=== PATIENT | male | born 1955 | race Caucasian/White ===

== ENCOUNTER 2022-07-08 04:00 | Day surgery (SDC) | payer OTHER ==
[2022-07-02 15:05] VITALS: BMI 28.6
[2022-07-08] MEDS ORDERED: MIDAZOLAM HCL 2 MG/2 ML SINGLE DOSE VIAL ONE (07:25)
[2022-07-08] MEDS ORDERED: SUCCINYLCHOLINE CHLORIDE 200 MG/10 ML SYRINGE ONE (07:25)
[2022-07-08] MEDS ORDERED: PROPOFOL 40 ML ONE (07:25)
[2022-07-08] MEDS ORDERED: ROPIVACAINE HCL 0.5% 30ML VIAL ONE (07:30)
[2022-07-08] MEDS ORDERED: DEXAMETHASONE SOD PHOSPHATE 10 MG/1 ML VIAL ONE (07:30)
[2022-07-08] MEDS ORDERED: ceFAZolin SODIUM 1 GM VIAL ONE (07:43)
[2022-07-08] MEDS ORDERED: DEXAMETHASONE SOD PHOSPHATE 4 MG/1 ML VIAL ONE (07:43)
[2022-07-08] MEDS ORDERED: GLYCOPYRROLATE 0.2 MG/1 ML VIAL ONE (07:43)
[2022-07-08] MEDS ORDERED: ONDANSETRON 4 MG/2 ML VIAL ONE (07:43)
[2022-07-08] MEDS ORDERED: ceFAZolin SODIUM 1 GM VIAL IVPB ONE (08:40)
[2022-07-08] MEDS ORDERED: PROPOFOL 20 ML ONE ×2 (09:45)
[2022-07-08] MEDS ORDERED: ONDANSETRON 4 MG/2 ML VIAL IVPUSH PRN (10:16)
[2022-07-08] MEDS ORDERED: oxyCODONE HCL 5 MG TABLET PO PRN (10:16)
[2022-07-08 14:26] VITALS: RESP 20; TEMP 97.2
[2022-07-08 14:33] VITALS: BP 132/82; PULSE 58
== END 2022-07-08 12:30 | disposition home or self-care (01) ==
LOC: JASU-SURG 04:00
PROVIDERS: ATTEND Orthopaedic Surgery
PROC: 0LQ24ZZ Repair Left Shoulder Tendon, Percutaneous Endoscopic Approach (ICD-10-PCS; 2022-07-08)
PROC: 0PBB4ZZ Excision of Left Clavicle, Percutaneous Endoscopic Approach (ICD-10-PCS; 2022-07-08)
PROC: 0LS44ZZ Reposition Left Upper Arm Tendon, Percutaneous Endoscopic Approach (ICD-10-PCS; 2022-07-08)
PROC: 0RNK4ZZ Release Left Shoulder Joint, Percutaneous Endoscopic Approach (ICD-10-PCS; principal; 2022-07-08 08:00)
PROC: 0LS44ZZ Reposition Left Upper Arm Tendon, Percutaneous Endoscopic Approach (ICD-10-PCS; 2022-07-08 08:00)
DX: M75.42 Impingement syndrome of left shoulder (principal); M75.102 Unspecified rotator cuff tear or rupture of left shoulder, not specified as traumatic; S43.492A Other sprain of left shoulder joint, initial encounter; X58.XXXA Exposure to other specified factors, initial encounter; Y93.9 Activity, unspecified; Y92.9 Unspecified place or not applicable; M19.012 Primary osteoarthritis, left shoulder
CPT/HCPCS: 29824; 29826; 29827; C1713; C9781; 94010; 94760; J1100

== ENCOUNTER 2024-07-12 04:13 | Inpatient (IN) | payer OTHER ==
[2024-07-12] MEDS ORDERED: PROPOFOL 40 ML ONE ×3 (07:37→16:19)
[2024-07-12] MEDS ORDERED: MIDAZOLAM HCL 2 MG/2 ML SINGLE DOSE VIAL ONE (07:38)
[2024-07-12] MEDS ORDERED: SUCCINYLCHOLINE CHLORIDE 200 MG/10 ML SYRINGE ONE (07:40)
[2024-07-12] MEDS ORDERED: ROCURONIUM BROMIDE 50 MG/5 ML SYRINGE ONE (07:40)
[2024-07-12] MEDS ORDERED: ceFAZolin SODIUM 1 GM VIAL ONE ×2 (07:48→11:43)
[2024-07-12] MEDS ORDERED: THROMBIN (BOVINE) 5,000 UNIT VIAL TP ONE (11:06)
[2024-07-12] MEDS ORDERED: DEXAMETHASONE SOD PHOSPHATE 4 MG/1 ML VIAL ONE ×2 (11:43→11:45)
[2024-07-12] MEDS: ceFAZolin SODIUM 1 GM VIAL IVPB ONE ×5 (11:47→16:00)
[2024-07-12] MEDS ORDERED: HYDROmorphone HCl 2 MG/ML VIAL ONE (11:52)
[2024-07-12] MEDS ORDERED: ACETAMINOPHEN INJECTION 100 ML ONE (12:24)
[2024-07-12] MEDS ORDERED: PROPOFOL 60 ML ONE (12:36)
[2024-07-12] MEDS ORDERED: PROPOFOL 80 ML ONE (13:39)
[2024-07-12] MEDS ORDERED: PROPOFOL 100 ML ONE (14:28)
[2024-07-12] MEDS ORDERED: ONDANSETRON 4 MG/2 ML VIAL IVPUSH PRN ×2 (14:31→20:03)
[2024-07-12] MEDS ORDERED: PROPOFOL 20 ML ONE ×3 (16:58→17:25)
[2024-07-12 19:20] LABS: ARTERIAL BLD GAS O2 SATURATION 99.5 % (95-98); ARTERIAL BLOOD GAS PO2 273.4 mmHg (80-100); ARTERIAL BLOOD GAS pH 7.206 (7.350-7.450)
[2024-07-12] MEDS ORDERED: HYDROmorphone *PCA* 10MG/50ML DISP.SYRIN ONE (19:34)
[2024-07-12 19:44] LABS: HEMATOCRIT 44.7 % (35.4-49); HEMOGLOBIN 14.8 GM/dL (11.7-16.9); MCH 28.7 pg (25.7-33.7); MCHC 33.1 g/dl (32.0-35.9); MEAN CELL VOLUME 86.6 fl (80-96); MEAN PLT VOLUME 7.4 fl (7.5-11.1); PLATELET COUNT 336 10^3/uL (134-434); RBC 5.16 M/mm3 (4.00-5.60); RDW 13.3 % (11.9-15.9); WHITE BLOOD COUNT 17.1 K/mm3 (4.0-10.0)
[2024-07-12 20:26] LABS: POTASSIUM 4.5 mmol/L (3.5-5.1)
[2024-07-12 20:27] LABS: CALCIUM 8.5 mg/dL (8.5-10.1)
[2024-07-12 20:28] LABS: BLOOD UREA NITROGEN 14.6 mg/dL (7-18)
[2024-07-12 20:31] LABS: CREATININE 1.3 mg/dL (0.55-1.3)
[2024-07-12] MEDS: HYDROmorphone *PCA* 10MG/50ML DISP.SYRIN PCA SCH ×2 (20:51→23:12)
[2024-07-12] MEDS: LACTATED RINGERS SOLUTION 1,000 ML IV SCH ×2 (20:52→23:12)
[2024-07-13 00:28] VITALS: BMI 28.5
[2024-07-13 07:37] LABS: HEMOGLOBIN 14.2 GM/dL (11.7-16.9); MCH 28.7 pg (25.7-33.7); MEAN CELL VOLUME 86.9 fl (80-96); MEAN PLT VOLUME 7.8 fl (7.5-11.1); PLATELET COUNT 321 10^3/uL (134-434); RBC 4.95 M/mm3 (4.00-5.60); RDW 13.5 % (11.9-15.9); WHITE BLOOD COUNT 17.2 K/mm3 (4.0-10.0)
[2024-07-13 07:53] LABS: POTASSIUM 4.4 mmol/L (3.5-5.1)
[2024-07-13 07:54] LABS: ALBUMIN 3.2 g/dl (3.4-5.0); CALCIUM 8.9 mg/dL (8.5-10.1)
[2024-07-13 07:57] LABS: CREATININE 0.9 mg/dL (0.55-1.3)
[2024-07-13 07:58] LABS: MAGNESIUM 2.4 mg/dL (1.8-2.4); PHOSPHOROUS 3.8 mg/dL (2.5-4.9)
[2024-07-13 08:00] LABS: BILIRUBIN,TOTAL 0.6 mg/dL (0.2-1); TOT PROT 5.7 g/dl (6.4-8.2)
[2024-07-13 08:48] LABS: ARTERIAL BLD GAS O2 SATURATION 93.6 % (95-98); ARTERIAL BLOOD GAS BASE EXCESS -1.2 mmol/L (-2-2); ARTERIAL BLOOD GAS pH 7.355 (7.350-7.450)
[2024-07-13 08:51] LABS: ALLENS TEST POSITIVE
[2024-07-13] MEDS: amLODIPine BESYLATE 10 MG TABLET (FP) PO SCH (11:03)
[2024-07-13] MEDS: ROSUVASTATIN CA 5 MG TABLET PO SCH (22:07)
[2024-07-14 09:29] LABS: BASO % 0.1 % (0-2.0); EOS % 0.1 % (0-4.5); HEMOGLOBIN 14.6 GM/dL (11.7-16.9); LYMPH % 8.6 % (8-40); MCH 28.6 pg (25.7-33.7); MCHC 33.2 g/dl (32.0-35.9); MEAN CELL VOLUME 86.2 fl (80-96); MEAN PLT VOLUME 7.7 fl (7.5-11.1); MONO % 12.7 % (3.8-10.2); NEUT % 78.5 % (42.8-82.8); PLATELET COUNT 324 10^3/uL (134-434); RBC 5.11 M/mm3 (4.00-5.60); RDW 13.4 % (11.9-15.9); WHITE BLOOD COUNT 16.1 K/mm3 (4.0-10.0)
[2024-07-14 09:57] LABS: POTASSIUM 4.1 mmol/L (3.5-5.1)
[2024-07-14] MEDS: DOCUSATE SODIUM 100 MG CAPSULE (FP) PO SCH (10:02)
[2024-07-14 10:06] LABS: CALCIUM 9.2 mg/dL (8.5-10.1)
[2024-07-14 10:07] LABS: ALBUMIN 3.2 g/dl (3.4-5.0)
[2024-07-14 10:11] LABS: TOT PROT 6.2 g/dl (6.4-8.2)
[2024-07-14] MEDS: oxyCODONE HCL 5 MG TABLET PO PRN (18:33)
[2024-07-15 06:39] LABS: BASO % 0.3 % (0-2.0); EOS % 0.7 % (0-4.5); HEMATOCRIT 40.4 % (35.4-49); HEMOGLOBIN 13.3 GM/dL (11.7-16.9); LYMPH % 14.2 % (8-40); MCH 28.8 pg (25.7-33.7); MCHC 32.9 g/dl (32.0-35.9); MEAN CELL VOLUME 87.6 fl (80-96); MONO % 12.6 % (3.8-10.2); NEUT % 72.2 % (42.8-82.8); PLATELET COUNT 275 10^3/uL (134-434); RBC 4.61 M/mm3 (4.00-5.60); RDW 13.3 % (11.9-15.9); WHITE BLOOD COUNT 14.6 K/mm3 (4.0-10.0)
[2024-07-15] MEDS: ACETAMINOPHEN 325 MG TABLET (FP) PO PRN (16:54)
[2024-07-15] MEDS: LIDOCAINE 5% TOPICAL PATCH TP ONE (21:49)
[2024-07-15] MEDS: MELATONIN 5 MG TABLETS PO ONE (21:50)
[2024-07-16] MEDS: amLODIPine BESYLATE 5 MG TABLET (FP) PO SCH (09:11)
[2024-07-16] MEDS: LIDOCAINE PATCH REMOVAL MC SCH (09:34)
[2024-07-16 10:05] LABS: BASO % 0.1 % (0-2.0); HEMATOCRIT 40.3 % (35.4-49); HEMOGLOBIN 13.6 GM/dL (11.7-16.9); LYMPH % 5.2 % (8-40); MCHC 33.9 g/dl (32.0-35.9); MEAN CELL VOLUME 85.5 fl (80-96); MONO % 5.8 % (3.8-10.2); NEUT % 88.9 % (42.8-82.8); PLATELET COUNT 308 10^3/uL (134-434); RBC 4.71 M/mm3 (4.00-5.60); RDW 13.2 % (11.9-15.9); WHITE BLOOD COUNT 14.7 K/mm3 (4.0-10.0)
[2024-07-16] MEDS: busPIRone HCL 5 MG TABLET PO SCH (11:28)
[2024-07-16] MEDS: ENOXAPARIN NA (PORCINE) 40 MG/0.4 ML DISP.SYRIN SQ SCH (11:29)
[2024-07-16] MEDS ORDERED: PIPERACILLIN/TAZOB 3.375 GM 3.375 GM in DEXTROSE 5%-WATER - 50 ML IVPB SCH (12:15)
[2024-07-16] MEDS: ENOXAPARIN NA (PORCINE) 40 MG/0.4 ML DISP.SYRIN SQ ONE (13:34)
[2024-07-16 16:53] LABS: EPI CELLS 8 /uL (0-25.1); HYALINE CASTS 0 /uL (0-3.1); PH,URINE 6.5 (5.0-8.0); URINE APPEARANCE CLEAR; URINE BACTERIA 5 /uL (0-1359); URINE BILIRUBIN NEGATIVE (NEGATIVE); URINE COLOR YELLOW; URINE GLUCOSE (UA) NEGATIVE (NEGATIVE); URINE KETONE TRACE (NEGATIVE); URINE LEUK ESTERASE NEGATIVE (NEGATIVE); URINE NITRITE NEGATIVE (NEGATIVE); URINE PROTEIN 1+ (NEGATIVE); URINE RBC 1746 /uL (0-23.9); URINE WBC 20 /uL (0-25.8)
[2024-07-16] MEDS: PIPERACILLIN/TAZOB 3.375 GM 50 ML IVPB SCH (17:29)
[2024-07-16] MEDS: ENOXAPARIN NA (PORCINE) 80 MG/0.8 ML DISP.SYRIN SQ SCH (21:00)
[2024-07-17] MEDS: VANCOMYCIN/WATER FOR INJ (PEG) 1,000 MG/200 ML BAG IVPB ONE (00:43)
[2024-07-17] MEDS: PIPERACILLIN/TAZOB 4.5 GM 4.5 GM/100 ML BAG IVPB SCH (03:30)
[2024-07-17 11:27] LABS: POTASSIUM 3.5 mmol/L (3.5-5.1)
[2024-07-17 11:31] LABS: CALCIUM 9.3 mg/dL (8.5-10.1)
[2024-07-17 11:32] LABS: ALBUMIN 2.9 g/dl (3.4-5.0); BLOOD UREA NITROGEN 13.9 mg/dL (7-18)
[2024-07-17 11:35] LABS: CREATININE 0.9 mg/dL (0.55-1.3)
[2024-07-17 11:36] LABS: TOT PROT 6.5 g/dl (6.4-8.2)
[2024-07-17] MEDS: POLYETHYLENE GLYCOL (HEALTHYLAX) 3350 17 GM PACKET PO SCH (21:37)
[2024-07-18] MEDS: ACETAMINOPHEN 325 MG TABLET (FP) PO PRN (05:39)
[2024-07-18] MEDS ORDERED: SENNOSIDES 8.6MG TABLET (FP) PO PRN (22:33)
[2024-07-19 09:30] LABS: BASO % 0.2 % (0-2.0); EOS % 0.8 % (0-4.5); HEMATOCRIT 41.8 % (35.4-49); HEMOGLOBIN 14.1 GM/dL (11.7-16.9); LYMPH % 12.5 % (8-40); MCH 28.7 pg (25.7-33.7); MCHC 33.7 g/dl (32.0-35.9); MEAN CELL VOLUME 85.3 fl (80-96); MEAN PLT VOLUME 7.3 fl (7.5-11.1); MONO % 11.2 % (3.8-10.2); NEUT % 75.3 % (42.8-82.8); PLATELET COUNT 432 10^3/uL (134-434); RDW 12.8 % (11.9-15.9); WHITE BLOOD COUNT 13.1 K/mm3 (4.0-10.0)
[2024-07-19 10:05] LABS: POTASSIUM 3.4 mmol/L (3.5-5.1)
[2024-07-19 10:17] LABS: ALBUMIN 2.6 g/dl (3.4-5.0); BLOOD UREA NITROGEN 16.9 mg/dL (7-18); CALCIUM 9.1 mg/dL (8.5-10.1); CREATININE 0.8 mg/dL (0.55-1.3)
[2024-07-19 10:19] LABS: BILIRUBIN,TOTAL 0.7 mg/dL (0.2-1); TOT PROT 5.9 g/dl (6.4-8.2)
[2024-07-19 20:55] VITALS: RESP 18
[2024-07-20 22:01] VITALS: BP 119/72; PULSE 63; TEMP 98.6
== END 2024-07-20 23:00 | DRG 430 ==
LOC: J2C 04:13 → J4W 23:08 → J5S 07-15 12:03
PROVIDERS: ADMIT Neurological Surgery; ATTEND Family Medicine
PROC: 0PB30ZZ Excision of Cervical Vertebra, Open Approach (ICD-10-PCS; 2024-07-12)
PROC: 01N10ZZ Release Cervical Nerve, Open Approach (ICD-10-PCS; 2024-07-12)
PROC: 4A11X4G Monitoring of Peripheral Nervous Electrical Activity, Intraoperative, External Approach (ICD-10-PCS; 2024-07-12)
PROC: 0RG20A0 Fusion of 2 or more Cervical Vertebral Joints with Interbody Fusion Device, Anterior Approach, Anterior Column, Open Approach (ICD-10-PCS; principal; 2024-07-12 08:00)
PROC: 0RG2071 Fusion of 2 or more Cervical Vertebral Joints with Autologous Tissue Substitute, Posterior Approach, Posterior Column, Open Approach (ICD-10-PCS; 2024-07-12 08:00)
DX: M50.23 Other cervical disc displacement, cervicothoracic region (principal); G95.9 Disease of spinal cord, unspecified; J98.11 Atelectasis; M43.12 Spondylolisthesis, cervical region; G72.9 Myopathy, unspecified; M50.20 Other cervical disc displacement, unspecified cervical region; I10 Essential (primary) hypertension; E78.5 Hyperlipidemia, unspecified; M12.812 Other specific arthropathies, not elsewhere classified, left shoulder; M48.02 Spinal stenosis, cervical region; M40.209 Unspecified kyphosis, site unspecified; D72.829 Elevated white blood cell count, unspecified
CPT/HCPCS: 0241U-QW; 36415; 36600; 71045-TC-FY; 71275-TC; 72040-TC; 76000-TC-FY; 80048; 80053; 81003; 82803; 82962; 83735; 84100; 84484; 85025; 85027; 85379; 86850; 86900; 86901; 87040; 87086; 93005; 93010; 93970-TC; 94010; 94760; 97116-GP; 97162-GP; C1713; C1889; J0131